=== PATIENT | male | born 1990 | race Caucasian/White ===

== ENCOUNTER 2018-09-20 03:23 | Observation (INO) ==
[2018-09-20] MEDS ORDERED: NS 1,000 ML IV ONE ×2 (03:43→05:08)
--- NOTE | 2018-09-20 03:47 | PROVIDER DOCUMENTATION ---
This chart was entered by Jeanne Arriaga Scribe, acting as scribe for Travis Cole MD. HPI-Abdominal Pain/GI Problem - General Chief Complaint: Abdominal Pain Stated Complaint: ABD PAIN Time Seen by Provider: 09/20/18 03:32 Source: patient, family Allergies/Adverse Reactions: Patient Allergies Allergy/AdvReac Type Severity Reaction Status Date / Time No Known Allergies Allergy Verified 05/20/18 20:41 Home Medications: Home Medication List Medication Instructions Recorded Confirmed Last Taken Type Buprenorphine/Naloxone S.l. 1 each SL TID 02/19/18 05/17/18 02/19/18 History [Suboxone 8 mg/2 mg Film] 0730 Albuterol Sulfate Inhaler 2 puff INH Q6H PRN #1 inhaler 04/06/18 Unknown Rx [Ventolin Hfa] Azithromycin [Zithromax Z-Bala] 250 mg PO DIRECTED #1 pkg 04/06/18 Unknown Rx Prednisone 40 mg PO DAILY 5 Days tab 04/06/18 Unknown Rx Naproxen 500 mg PO BID PRN #14 tablet. 05/17/18 Unknown Rx Hyoscyamine [Levsin] 0.125 mg PO Q6H PRN #14 tab 09/17/18 Unknown Rx Ondansetron [Zofran Odt] 4 mg PO Q6HR #12 tab.rapdis 09/17/18 Unknown Rx - History of Present Illness-ABD Nature of Presenting Problems: 28 yom presents with cc of epigastric pain x 3 days with nausea, vomiting and liquid diarrhea. Reports has been going on since he eat a meal called [employer]. Reports he was at ED two days ago and was given medication but reports was unable to get them filled due to no insurance. Pt reports otc meds with no relief. States is unable to keep anything down and states he takes suboxone but even taking them makes him sicker. Reports subjective fever. Abdominal Pain Onset Location: reports: epigastric Pain Radiation: reports: no radiation Quality of Pain: reports: sharp Severity in ED: reports: moderate Onset/Duration: reports: 3 days ago Timing: reports: still present, getting worse Exposure to sick contacts?: No Review of Systems - Adult - REVIEW OF SYSTEMS - ADULT Constitutional: reports: fever. denies: chills, fatique, night sweats Eyes: reports: no symptoms reported Ears, Nose, Mouth & Throat: denies: ear pain, sinus problem, throat pain Cardiovascular: denies: chest pain, irregular heart rate, orthopnea, syncope Respiratory: denies: cough, shortness of breath, wheezing Gastrointestinal: reports: abdominal pain, diarrhea, nausea, vomiting. denies: hematemesis, constipation, difficulty swallowing, frequent heartburn, rectal bleeding Genitourinary: denies: dysuria, frequency, flank pain, frequent UTI's, hesitency , incontinence Musculoskeletal: denies: bone pain, back pain, joint pain, joint swelling, muscle aches Integumentary: reports: no symptoms reported Neurological: reports: no symptoms reported Psychiatric: reports: no symptoms reported Endocrine: reports: no symptoms reported Hematologic/Lymphatic: reports: no symptoms reported Allergic/Immunologic: reports: no symptoms reported All Other Systems: Reviewed and Negative Past History - Adult - PAST MEDICAL HISTORY-ADULT Review of Records: reports: Old Records Reviewed, Nursing Assessment Review, Medications Reviewed, Social history reviewed & non-contributory. Major Childhood Illnesses: reports: denies history Cardiovascular: reports: other (svt at 13 yrs old, 2 SA nodes?) Respiratory: reports: denies history Gastrointestinal: reports: denies history Obstetrical/Gynecological: reports: denies history Genitourinary: reports: denies history Musculoskeletal: reports: denies history Neurological: reports: denies history Psychiatric: reports: denies history Endocrine/Immune: reports: denies history Other Conditions: reports: denies history - PRIOR SURGERIES/PROCEDURES Surgical/Procedure History: reports: none, tonsillectomy - IMMUNIZATION STATUS Childhood Immunizations: See Nurse Assessment Flu Vaccine: See Nurse Assessment - FAMILY HISTORY Family History: reviewed, not pertinent - SOCIAL HISTORY Smoking: cigarettes, less than 1 pack/day Provider spent 3-5 mins advising pt. on dangers of tobacco.: Discussed manners to quit use, and f/u contacts for add'l counseling. Substance Use: other (suboxone) Physical Exam-General - PHYSICAL EXAM-ADULT Initial Vital Signs Reviewed: Yes - CONSTITUTIONAL General Appearance: appears well, alert, mild distress - EYES Eyes: PERRL/EOMI, pink conjunctivae - HEAD, EARS, NOSE, MOUTH & THROAT HENMT: moist mucous membranes, pharynx normal - NECK Neck: non-tender, full range of motion, supple, normal inspection - RESPIRATORY Respiratory: chest non-tender, lungs clear, normal breath sounds, no pleuratic chest pain, no respiratory distress, no accessory muscle use - CARDIOVASCULAR Cardiovascular: regular rate, rhythm, no edema, no gallop, no JVD, no murmur - GASTROINTESTINAL (ABDOMEN) Abdominal Exam: soft, no organomegaly, no pulsatile mass, tenderness (tender to epigastric) - LYMPHATIC Lymphatic: no adenopathy - MUSCULOSKELETAL Back Exam: normal inspection, no CVA tenderness, no vertebral tenderness Extremity: normal range of motion, non-tender, normal gait, normal inspection, no pedal edema - SKIN Integumentary: normal color, normal turgor, warm/dry, other (many tattoos on body) - NEUROLOGIC Neurologic: grossly normal - PSYCHIATRIC Psych/Mental Status: normal mood/affect, normal thought content, normal thought process, oriented x 3 Progress - PLAN OF CARE/RESULTS Progress/Plan/Lab Results: Vital Signs - 8 hr 09/20/18 03:26 Temperature 97.6 F Pulse Rate 108 H Respiratory Rate 20 Blood Pressure 126/78 O2 Sat by Pulse Oximetry 99 Laboratory Tests 09/20/18 03:40 WBC 12.52 H RBC 5.67 Hgb 16.8 Hct 47.8 MCV 84.3 MCH 29.6 MCHC 35.1 RDW Std Deviation 12.5 Plt Count 309 MPV 9.5 Immature Gran % (Auto) 0.2 Neut % (Auto) 58.7 Lymph % (Auto) 25.9 [place] % (Auto) 13.1 H Eos % (Auto) 1.8 Baso % (Auto) 0.3 Immature Gran # (Auto) 0.02 Neut # (Auto) 7.35 H Lymph # (Auto) 3.24 [place] # (Auto) 1.64 H Eos # (Auto) 0.23 Baso # (Auto) 0.04 Orders Category Date Time Status Saline Loc DIRECTED Care 09/20/18 03:42 Active NPO Diet 09/20/18 03:[address] ABD/PELVIS W/IV CONT ONLY [CT] Stat Exams 09/20/18 03:43 Taken AMYLASE [CHEM] Stat Lab 09/20/18 03:40 Received CBC WITH ELECTRONIC DIFF [HEME] Stat Lab 09/20/18 03:40 Completed COMPREHENSIVE METABOLIC PANEL [CHEM] Stat Lab 09/20/18 03:40 Received LIPASE [CHEM] Stat Lab 09/20/18 03:40 Received 0.9% Sodium Chloride Inj [Ns] 1,000 ml Med 09/20/18 03:43 Discontinued IV 999 mls/hr Ondansetron [Zofran] Med 09/20/18 03:51 Discontinued 4 mg IV NOW ONE 0508 Dr. Miller paiged Result Diagrams: 09/20/18 03:40 09/20/18 03:40 - CT/MRI 1 CT Study: Abdomen Impression: Abnormal (borderline dilated proximal small bowel loops with some air fluid levels. suggestive of enteritis with mild generalized ileus, but early developing versus low grade small bowel obstruction is not ruled out.), See EMR Report - CONSULTS/PCP/HOSPITALIST Notification #1 *Consult/PCP/Hospitalist*: Dr. Miller Time Discussed: 05:29 Consult Disposition: Admit Departure - Departure Date of Disposition Decision: 09/20/18 Time of Disposition Decision: 05:08 DIAGNOSIS: Intractable nausea and vomiting, Enteritis, Abdominal pain Disposition: ADMITTED INPATIENT 09 Certified Medical Emergency: Emergent Condition: Stable Referrals and Follow-Ups: None,PCP [Primary Care Provider] - - Critical Care Note This patient required my direct & personal management of CC.: No Attestation - Physician/ LORENA Attestation Patient care was provided by Advanced Practice Provider:: No The physician spent face to face time with patient:: Yes Advanced Practice Provider documentation review:: Supervising physician onsite and consulted in the evaluation and care of this patient. The physician did have a face to face encounter with the patient. This chart was documented by the indicated scribe, (Jeanne Arriaga Scribe) and accurately reflects the services I performed and decisions made by me, Travis Cole MD, as attested by the provider's signature.
[2018-09-20] MEDS ORDERED: ZOFRAN IV ONE (03:51)
[2018-09-20 03:54] LABS: BASO# 0.04 X1000 (0.0-0.2); BASO% 0.3 % (0.0-0.8); EOS# 0.23 X1000 (0.0-0.7); EOS% 1.8 % (0.0-10.0); HEMATOCRIT 47.8 % (42.0-52.0); HEMOGLOBIN 16.8 g/dL (14.0-18.0); IMM GRAN# 0.02 X1000 (0.0-0.04); IMM GRAN% 0.2 % (0.0-0.5); LYMPH# 3.24 X1000 (1.2-3.4); LYMPH% 25.9 % (20.5-51.1); MCH 29.6 PG (27-31); MCHC 35.1 g/dL (33-37); MCV 84.3 FL (81-99); MONO# 1.64 X1000 (0.11-0.59); MONO% 13.1 % (1.7-9.3); MPV 9.5 FL (7.4-10.4); NEUT# 7.35 X1000 (1.4-6.5); NEUT% 58.7 % (42.2-75.2); PLT 309 X1000 (130-400); RBC 5.67 XMIL (4.7-6.1); RDW 12.5 % (11.5-14.5); WBC 12.52 X1000 (4.8-10.8)
[2018-09-20] MEDS ORDERED: ZOFRAN IV PRN (05:08)
[2018-09-20 05:21] LABS: AGAP 14; ALBUMIN 4.2 g/dL (3.5-5.0); ALKALINE PHOSPHATASE 52 U/L (32-122); AMYLASE 45 U/L (20-200); BUN 15 mg/dL (8-22); CALCIUM 9.1 mg/dL (8.8-10.2); CHLORIDE 96 mmol/L (98-107); COSMO 275; CREATININE 0.8 mg/dL (0.7-1.2); ESTIMATED GFR > 60; GLUCOSE 101 mg/dL (70-104); GOT 17 U/L (10-34); GPT 11 U/L (10-44); LIPASE 18 U/L (13-60); POTASSIUM 3.8 mmol/L (3.5-5.1); SODIUM 137 mmol/L (136-145); TCO2 27 mmol/L (25-35); TOTAL PROTEIN 6.5 g/dL (6.3-8.3)
--- NOTE | 2018-09-20 07:59 | Diag Imaging Result Doc PS360 ---
EXAM: CT ABD/PELVIS W/IV CONT ONLY INDICATION: nausea and vomiting, abdominal pain TECHNIQUE: This exam was performed using automated exposure control, adjustment of mA or kV according to patient size, and/or use of iterative reconstruction technique. COMPARISON: None. FINDINGS: The liver, gallbladder, spleen, pancreas, adrenal glands, kidneys, and urinary bladder are essentially unremarkable. Although the diameter of the appendix is prominent, it is thin walled and there is no surrounding inflammation to indicate appendicitis. There is also normal gas in the tip of the appendix. The small bowel and colon are fluid-filled and there are several air-fluid levels. There is mild to moderate distention of several loops of small bowel. This is nonspecific but is most compatible with enteritis and associated generalized mild ileus. There is nothing that necessarily indicates obstruction. The stomach is grossly unremarkable. There is no free abdominal air or free fluid identified. IMPRESSION: Fluid-filled loops of small bowel and colon with mild to moderate distention and air-fluid levels. Although nonspecific, this probably represents enteritis with associated generalized mild ileus. Electronically signed by Fermin Woodard 09/20/2018 7:57 AM
[2018-09-20] MEDS ORDERED: PROTONIX IV SCH (11:15)
[2018-09-20] MEDS ORDERED: SODIUM CHLORIDE 0.9% INJ SCH (11:15)
--- NOTE | 2018-09-20 12:14 | HISTORY AND PHYSICAL ---
PRIMARY CARE PROVIDER: None. CHIEF COMPLAINT: Nausea, vomiting, diarrhea, abdominal cramping. HISTORY OF PRESENT ILLNESS: Mr. Faye is a 28-year-old male who carries a past medical history of SVT at the age of [age] years old, substance abuse with pills, on Suboxone. He reported to the ED on 09/17/18 with the same complaints of nausea, vomiting, diarrhea, and abdominal pain, diagnosed with a diarrheal disease and sent home with Levsin and Zofran, and reported back to the ED on 09/20/18 with continued complaints saying that he had eaten a frozen meal, [employer] beef and broccoli. He was unable to get his medications filled secondary to no insurance. He reported taking [id number] meds with no relief. He states for the last 4 days he has had intractable nausea, vomiting, and diarrhea. He is not able to hold any fluids down and reports burping up acid. He was not even able to hold down his Suboxone, he felt that it made him sicker. He denied any chest pain, fever, chills, shortness of breath, headache. He was admitted to medical telemetry for enteritis. We will continue on IV fluids and antiemetics as well as PPI. PAST MEDICAL HISTORY: 1. SVT at 13 years old. 2. Pill abuser on Suboxone. PAST SURGICAL HISTORY: Tonsillectomy. FAMILY HISTORY: No coronary artery disease. SOCIAL HISTORY: The patient is from [place]. He is a tobacco smoker of less than half a pack per day. is at bedside. ALLERGIES: No known drug allergies. HOME MEDICATIONS: 1. Suboxone 1 inch sublingual t.i.d. 2. Zofran 4 mg p.o. q.6 hours p.r.n. 3. Atenolol inhaler 2 puffs inhaled q.6 hours. 4. Levsin 0.125 mg p.o. q.6 hours p.r.n. 5. Naproxen 500 mg p.o. b.i.d. 6. Prednisone 40 mg p.o. daily. REVIEW OF SYSTEMS: A 14 point review of systems was completed and negative except for those mentioned in HPI. PHYSICAL EXAMINATION: VITAL SIGNS: Temperature 98.4. Heart rate 83. Respirations 12. Blood pressure 128/68. O2 sat 95% on room air. GENERAL: Mr. Faye is a 28-year-old male, who is lying on the bed with his , in no acute distress. HEENT: Atraumatic and normocephalic. PERRL. NECK: Supple. Trachea midline. CARDIOVASCULAR: S1, S2 appreciated, no murmurs, gallops or rubs noted. RESPIRATORY: Lungs sound clear to auscultation with nonlabored breathing. No rales, rhonchi, or wheezes. GI: Soft, nontender, nondistended. Positive bowel sounds in 4 quadrants. EXTREMITIES: Negative for edema. No clubbing or cyanosis. Bilateral pedal pulses are pounding. SKIN: Warm, dry, and intact. NEUROLOGICAL: Alert and oriented x4. No focal deficits noted. ASSESSMENT AND PLAN: 1. Enteritis with nausea, vomiting, and diarrhea. We will continue with n.p.o. status, IV fluids, PPI. The patient is on Suboxone, we cannot give any narcotics. 2. Intractable nausea, vomiting, and diarrhea. Continue with antiemetics, IV fluids, check stool cultures. 3. History of pill abuse. The patient is currently on Suboxone; however, secondary to nausea and vomiting and making him feel sicker, this medication will be held. 4. Tobacco use and abuse. The patient will need educated on smoking cessation as well as the need to quit. Further recommendations to follow physician evaluation, laboratory data, and diagnostic data. Dictated by GALLO Estrada for Ashvin Miller MD cc: Ashvin Miller MD
[2018-09-20 16:43] VITALS: BP 120/82
--- NOTE | 2018-09-21 12:38 | DISCHARGE SUMMARY ---
ADMISSION DATE: 09/20/2018 DISCHARGE DATE: 09/20/2018 DISCHARGE DIAGNOSES: 1. Gastroenteritis. 2. Dehydration. HISTORY AND HOSPITAL COURSE: The patient came in with intractable nausea, vomiting. He is on Suboxone. He does have a history of polysubstance abuse. Workup was really unremarkable, but this was his second visit to the ER and Dr. Cole evaluated him, did not feel like he could completely be able to go home. His CT was also preliminarily read as a possible small bowel obstruction. He does have fluid-filled loops of small bowel with some distention, air-fluid levels, but that can be seen with enteritis which is likely what he had. After hydration though, he felt better. He actually requested to be discharged AMA, but I evaluated him and we advanced his diet and recommended just follow-up. If he tolerated that he could go home. He was given a new prescription for Zofran. He is also on Prilosec 40, Levsin, Ventolin, and his Suboxone that he usually takes. DISCHARGE CONDITION: Stable. FOLLOW UP: With PCP as needed. cc: Ashvin Miller MD
== END 2018-09-20 18:47 | disposition home or self-care (01) ==
LOC: P.EDIPHOLD 03:23 → P.ED 03:23 → P.MEDSURG 10:01
PROVIDERS: ATTEND Internal Medicine
CPT/HCPCS: 74177; 80053; 82150; 83690; 85025; 96374; 99285; C9113; J2405; J7030; Q9967; S0164